=== PATIENT | male | born 1970 | race Caucasian/White ===

== ENCOUNTER 2020-11-23 08:18 | Emergency (ER) | payer SELFPAY ==
[~2020-11-23] VITALS: Ht 180.3 cm; Wt 86.0 kg
[2020-11-23 08:18] VITALS: BP 179/98
--- NOTE | 2020-11-23 09:24 | RAD ---
XR FOOT_RIGHT 3 VIEWS 11/23/2020 9:09 AM INDICATION: Injury, right flank pain and swelling COMPARISON: None available. TECHNIQUE: 3 views of the right foot are provided. FINDINGS/ IMPRESSION: There is subtle periosteal reaction along the base of the first metatarsal. Correlate with point tend erness. There is regional soft tissue swelling. Mildly displaced fracture is a consideration. Cross-s ectional imaging may be of benefit. Joint spaces are maintained. Bone mineralization is within normal limits. Regional soft tissues are within normal limits. There is no soft tissue gas or osseous erosi on. No radiopaque foreign body. Remote healed fracture involving the proximal shaft of the fifth meta tarsal. Tiny plantar calcaneal enthesophyte. Electronically signed by: Pavithra Haynes MD (11/23/2020 9:22 AM) [id number]
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
[2020-11-23] MEDS ORDERED: ACETAMINOPHEN 325 MG TABLET PO ONE (09:30)
[2020-11-23 10:17] LABS: GFR 79.1; POTASSIUM 3.6 mmol/L (3.5-5.1)
[2020-11-23] MEDS ORDERED: HYDR-2155 PO (11:00)
== END 2020-11-23 11:05 | disposition home or self-care (01) ==
LOC: ER 08:18
DX: S92.311A Displaced fracture of first metatarsal bone, right foot, initial encounter for closed fracture (principal); I10 Essential (primary) hypertension; Z91.14 Patient's other noncompliance with medication regimen; Z59.0 Homelessness; Z88.2 Allergy status to sulfonamides; X58.XXXA Exposure to other specified factors, initial encounter; Y93.89 Activity, other specified; Y92.89 Other specified places as the place of occurrence of the external cause; Y99.8 Other external cause status
CPT/HCPCS: 29125; 29515; 36415; 73630; 80048; 99284